=== PATIENT | male | born 2000 ===

== ENCOUNTER 2021-05-14 13:42 | Emergency (ER) | payer OTHER ==
[2021-05-14 14:30] VITALS: BP 141/73; PULSE 79; O2SAT 98
[2021-05-14] MEDS: XYLOCAINE 2% HCL 20 ML MDV IJ ONE ×2 (17:03→17:04)
== END 2021-05-14 17:06 | disposition left against medical advice (07) ==
LOC: ED 13:42
DX: S61.411A Laceration without foreign body of right hand, initial encounter (principal); W26.8XXA Contact with other sharp object(s), not elsewhere classified, initial encounter; Y93.89 Activity, other specified; Y92.89 Other specified places as the place of occurrence of the external cause
CPT/HCPCS: 99283; G0463